=== PATIENT | female | born 1950 | race Caucasian/White ===

== ENCOUNTER → 2016-09-03 13:51 | Outpatient (CLI) | payer BC | END | disposition home or self-care (01) | LOC: D.US 13:51 | DX: C18.9 Malignant neoplasm of colon, unspecified (principal) ==

== ENCOUNTER 2016-10-18 05:04 | Day surgery (SDC) | payer BC ==
[2016-10-15 13:47] LABS: BASOPHILS 0.2 % (0-2); EOSINOPHILS 1.5 % (0-7); HEMATOCRIT 43.4 % (36.0-48.0); HEMOGLOBIN 13.9 g/dL (12-16); IMMATURE GRANULOCYTES 0.5 % (0-5); LYMPHOCYTES 41.1 % (15-50); MCH 28.8 pg (26.0-34.0); MEAN PLATELET VOLUME 9.4 fL (7.4-10.4); MONOCYTES 6.9 % (2-11); NEUTROPHILS 49.8 % (40-80); PLATELET COUNT 289 10x3/uL (130-400); RBC 4.82 10x6/uL (4.00-5.40); RDW 14.1 % (11.5-14.5)
[2016-10-15 13:50] LABS: ANION GAP 13.4 mmol/L (8-16); CALCIUM 9.5 mg/dL (8.5-10.1); CARBON DIOXIDE 27.6 mmol/L (21.0-32.0); CREATININE - SERUM 1.1 mg/dL (0.6-1.3); INR 0.99 (0.85-1.17); PROTIME 12.9 SECONDS (11.6-15.0)
[~2016-10-18] VITALS: Ht 172.7 cm; Wt 98.9 kg
[~2016-10-18 05:04] MED LIST: ATIVAN0.5 MG PO; BENADRYL25 MG PO; CRESTOR10 MG PO; FLUTICASONE PRO16 GM NASAL; PHENERGAN25 M1 PO; TRANSDERM-SCO1 PATCH TRANSDERM; VITAMIN D250000 UNIT PO; ZOFRAN4 MG PO
[2016-10-18] MEDS ORDERED: PEPCID20 MG PO (08:55)
[2016-10-18 08:56] VITALS: BP 114/71; Ht 172.7 cm; Wt 98.9 kg
--- NOTE | 2016-10-18 09:20 | NUR ---
[address] DR[address] RODOLFO GURROLA.
[2016-10-18] MEDS ORDERED: HYDROCODON-ACE1 EAC7 PO (10:29)
--- NOTE | 2016-10-18 22:58 | OP ---
PATIENT NAME: NOE BURROWS MEDICAL RECORD: [id number] :54 LOCATION:D[facility] ADMISSION DATE: SURGEON: ANUPAM VILLAGOMEZ MD DATE OF OPERATION: 10/18/2016 SURGEON: Anupam Villagomez MD PREOPERATIVE DIAGNOSIS: Stage III colon cancer. POSTOPERATIVE DIAGNOSIS: Stage III colon cancer. PROCEDURE PERFORMED: 1. Insertion of left subclavian tunneled PowerPort. 2. Immediate interpretation of fluoroscopy. ANESTHESIA: General. COMPLICATIONS: None. SPECIMENS: None. Case was clean. ESTIMATED BLOOD LOSS: 10 cc. OPERATIVE COURSE: After consent was obtained, the patient was taken to the operating room and placed in supine position on the operating table. Next, general anesthesia was given via endotracheal intubation. After a timeout was performed that confirmed the correct patient and procedure, the left chest and neck were prepped and draped in typical sterile fashion. Ioban dressing was placed prior to skin incision. A 30 cc of local anesthetic were injected in the left chest wall. The left subclavian vein was cannulated on the first pass. Under fluoroscopy, a guidewire was placed through the needle and advanced to the atriocaval junction. The needle was removed. A stab incision was made with 11-blade scalpel. Next, a skin incision was made with a 15-blade scalpel in the left chest wall. Dissection continued to the level of the pectoralis fascia using electrocautery. A pocket was created with a combination of blunt dissection and electrocautery in the pectoralis fascia. The tunneling device was then used to tunnel the catheter from the skin incision site to the needle stick site. At this time, under direct fluoroscopy, the dilator and breakaway sheath were passed over the wire in standard Seldinger fashion. The wire and dilator were removed. The catheter was cut to length. It was passed through the breakaway sheath under fluoroscopy and advanced to the atriocaval junction. The breakaway sheath was removed. The catheter was secured to the port. The port was flushed, blood was aspirated. The port was then secured to the pectoralis fascia using interrupted 2-0 Prolene suture. The port was again accessed, it was flushed with 5000 units of heparin and 30 cc of injectable saline. At this time, the wound was irrigated and suctioned. The subcutaneous tissue was closed with 3-0 Vicryl suture. The skin was closed with 4-0 Stratafix, Mastisol and Steri-Strips. Next, a Telfa was placed across the Steri-Strips. A 1.5 inch Day needle was placed through the skin and into the port, blood was aspirated again and then flushed with injectable saline. Sterile Tegaderm dressings were placed. At the end of the case, all needle and instrument counts were correct. No complications occurred. The patient was extubated and transferred to the PACU in stable condition. OPERATIVE REPORT [id number] NOE BURROWS TRANSINT:[id number] Voice Confirmation ID: [id number] DOCUMENT ID: [id number] ANUPAM VILLAGOMEZ MD at 2258 CC: [id number] DICTATION DATE: 10/18/16 1033 STAFF RADIOGRAPHER: 10/18/162019 [facility] [place] 10/18/[address] [address]
== END 2016-10-18 13:35 | disposition home or self-care (01) ==
LOC: D.OPS 05:04 → D.PAN 09:30 → D.OPS 10:45 → D.PAN 10:45 → D.OPS 13:35
PROVIDERS: Anesthesiology
DX: C18.9 Malignant neoplasm of colon, unspecified (principal)

== ENCOUNTER → 2016-10-19 08:32 | Outpatient (CLI) | payer BC ==
[2016-10-18 08:56] VITALS: BMI 33.2
[~2016-10-19 08:32] MED LIST changes: +HYDROCODON-ACE1 EAC7 PO; +PEPCID20 MG PO
== END | disposition home or self-care (01) ==
LOC: D.CT 08:32
DX: C18.2 Malignant neoplasm of ascending colon (principal)

== ENCOUNTER → 2016-11-17 18:42 | Outpatient (CLI) | payer BC ==
[2016-10-18 08:56] VITALS: BMI 33.2
[2016-11-17 20:12] LABS: BASOPHILS 0.3 % (0-2); EOSINOPHILS 8.2 % (0-7); HEMOGLOBIN 13.2 g/dL (12-16); IMMATURE GRANULOCYTES 0.3 % (0-5); LYMPHOCYTES 42.4 % (15-50); MCH 29.2 pg (26.0-34.0); MCHC 32.2 g/dL (31.0-37.0); MCV 90.7 fL (80.0-100.0); MEAN PLATELET VOLUME 9.5 fL (7.4-10.4); MONOCYTES 5.4 % (2-11); NEUTROPHILS 43.4 % (40-80); PLATELET COUNT 267 10x3/uL (130-400); RBC 4.52 10x6/uL (4.00-5.40); RDW 13.6 % (11.5-14.5); WBC 3.2 10x3/uL (4.8-10.8)
== END | disposition home or self-care (01) ==
LOC: D.LABREF 18:42
PROVIDERS: Internal Medicine Hematology & Oncology
DX: C18.2 Malignant neoplasm of ascending colon (principal)

== ENCOUNTER → 2017-08-01 08:26 | Outpatient (CLI) | payer MEDICARE ==
[2016-10-18 08:56] VITALS: BMI 33.2
== END | disposition home or self-care (01) ==
LOC: D.CT 08:26
DX: C18.2 Malignant neoplasm of ascending colon (principal)

== ENCOUNTER → 2018-04-27 11:50 | Outpatient (CLI) | payer MEDICARE ==
[2016-10-18 08:56] VITALS: BMI 33.2
--- NOTE | ~2018-04-27 | HEMODYNAMI ---
PATIENT:NOE BURROWS MEDICAL RECORD: [id number] : 54 LOCATION:[facility] ADMISSION DATE: 04/27/18 Generatedon:04/27/201813:07 Patient name: NOE BURROWS Patient #: [id number] SSN: DO B: 1950 Date of study: 04/27/2018 Page: Of Hemodynamic Procedure Report Patient Data Patient Demographics Procedure consent was obtained First Name: NOE Gender: Female Last Name: MARKOS : 1950 [facility] Initial: ANNALISA Age: 67 year(s) Patient #: [id number] Race: Unknown Additional ID: [id number] Contact details Address: [place] [address] State: [place] City: [place] Zip code: [address] Past Medical History Allergies Allergen Reaction Date Comments Reported Codeine 04/27/2018 Admission Admission Data Admission Date: 04/27/2018 Admission Time: 11:50 Procedure Procedure Types Cath Procedure Peripheral Cath Diagnostic Procedure Miscellaneous Procedure Description Procedure Date Procedure Date: 04/27/2018 Procedure Start Time: 13:05 Procedure Staff Name Function Neisha Moody MD Performing Physician Jay Dove RT Monitor Melissa De La Cruz RN Nurse Procedure Data Cath Procedure Fluoroscopy Diagnostic fluoroscopy Total fluoroscopy Time: 0.1 time: 0.1 min min Diagnostic fluoroscopy Total fluoroscopy dose: 27 dose: 27 mGy mGy Contrast Material Contrast Material Type Amount (ml) Isovue 300 35 Hemodynamics Rest Pre Cath Intra NCS Post Cath Procedure Log Time Note 12:32:10 Jay Dove RT (R) (CV) sent for patient. Start room use. 12:48:56 Patient received from Outpatients to IR Alert and oriented. Tansferred to table in Supine position. 12:48:58 Correct patient and procedure confirmed by team. 12:48:59 Signed procedure consent form obtained from patient. 12:49:02 - 12:49:03 Full Disclosure recording started 12:49:05 Pre-procedure instructions explained to patient. 12:49:06 Pre-op teaching completed and patient verbalized understanding. 12:49:13 Patient NPO since Breakfast. 12:49:25 Patient allergic to Codeine 12:55:45 Physician arrived 12:55:46 --------ALL STOP TIME OUT------ 12:56:51 Procedure started. 13:06:17 Procedure ended.(Physican Out) 13:06:33 Fluoroscopy time 00.10 minutes. 13:06:36 Fluoroscopy dose: 27 mGy 13:06:36 Flurop Dose total: 27 13:06:46 Contrast amount:Isovue 300 35ml. 13:07:00 pt sent home Signature Audit [place] Stage Time Signature Unsigned Intra-Procedure 04/27/2018 Jay 1:07:17 PM Derrell RT (R) (CV) Signatures Monitor : Jay Signature : Derrell RT Date : Time : [facility] [address] [place] [address]
== END | disposition home or self-care (01) ==
LOC: D.SP 11:50
DX: T82.594A Other mechanical complication of infusion catheter, initial encounter (principal); Z01.812 Encounter for preprocedural laboratory examination